=== PATIENT | female | born 1990 | race Caucasian/White ===

== ENCOUNTER 2017-09-23 16:48 | Emergency (ER) | payer SELFPAY ==
[2017-09-23 17:04] VITALS: BP 135/101; PULSE 112; RESP 18; TEMP 97.6; O2SAT 100
--- NOTE | 2017-09-23 17:45 | PD ---
HPI Chief Complaint: Skin Problem Time Seen by Provider: 17:16 Travel History International Travel<30 days: No Contact w/Intl Traveler<30days: No Traveled to known affect area: No History of Present Illness HPI 27 YO right hand dominant F presents to the ED for evaluation of 5 day history of pain and swelling of the right second digit. The patient denies acute injury to the finger. She states that she has "lots of cracks" on the tips of her fingers and that occasionally she gets infections. She denies fevers, chills, nausea, vomiting, numbness, tingling, weakness, limitations to range of motion of the digit. Treated at home with Bactroban ointment with no improvement of symptoms. She endorses history of MRSA. [facility] Past Medical History ?: Unknown LMP: 09/05/2017 Social History Tobacco Use: Yes Allergies-Medications (Allergen,Severity, Reaction): Coded Allergies: No Known Allergies (Unverified , 09/23/17) Reported Meds & Prescriptions Reported Meds & Active Scripts Active Ibuprofen 800 Mg Tab 800 Mg PO Q8H PRN Keflex (Cephalexin) 500 Mg Cap 500 Mg PO Q6H 7 Days Bactrim DS (Sulfamethoxazole-Trimethoprim) 800-160 Mg Tab 1 Tab PO BID Review of Systems Except as stated in HPI: all other systems reviewed are Neg Physical Exam Narrative GENERAL: Well-nourished, well-developed white female in no acute distress. SKIN: Focused skin assessment warm/dry. Tender ecchymosis of the tuft of the index finger of the right hand. HEAD: Normocephalic. EYES: No scleral icterus. No injection or drainage. NECK: Supple, trachea midline. No JVD or lymphadenopathy. CARDIOVASCULAR: Regular rate and rhythm without murmurs, gallops, or rubs. RESPIRATORY: Breath sounds equal bilaterally. No accessory muscle use. GASTROINTESTINAL: Abdomen soft, non-tender, nondistended. MUSCULOSKELETAL: No cyanosis, or edema. FOCUSED RIGHT UPPER EXTREMITY EXAM: 2+ radial pulse. No edema noted. No cellulitic streaking noted. Patient retains full, active ROM of the digit. Cap refill less than 2 seconds with each digit. Sensation intact to light touch distally with each digit. BACK: Nontender without obvious deformity. No CVA tenderness. Data Data Last Documented VS Vital Signs Date Time Temp Pulse Resp B/P (MAP) Pulse Ox O2 Delivery O2 Flow Rate FiO2 09/23/17 17:04 97.6 112 18 135/101 (112) 100 Orders Orders Finger (Ypc5tiv) (09/23/17 17:20) Sulfamet-Trimeth Ds 800-160 Mg (Bactrim (09/23/17 18:15) Cephalexin (Keflex) (09/23/17 18:15) Ibuprofen (Motrin) (09/23/17 18:15) Ed Discharge Order (09/23/17 18:10) MDM Medical Decision Making Medical Screen Exam Complete: Yes Emergency Medical Condition: Yes Differential Diagnosis tuft injury versus felon versus abscess versus other Narrative Course 27 YO right hand dominant F with PMH of MRSA presents to the ED for evaluation of 5 day history of pain and swelling of the right second digit. The patient denies acute injury to the finger. She states that she has "lots of cracks" on the tips of her fingers and that occasionally she gets infections. She denies fevers, chills, nausea, vomiting, numbness, tingling, weakness, limitations to range of motion of the digit. Treated at home with Bactroban ointment with no improvement of symptoms. Patient is afebrile, anxious-appearing on presentation. On exam there is an ecchymosis of the tuft of the index finger of the right hand but the exam is otherwise unremarkable. Nose no acute bony injury per radiology read. Patient is adamant that she did not have an injury. We'll treat for cellulitis. Patient's prescribed Bactrim, Keflex, ibuprofen, first dose is administered in the ED. She is instructed to keep the finger clean, dry, covered, take medication as its prescribed, return for worsening symptoms. She is stable and discharged home. Diagnosis Primary Impression: Infected finger Referrals: Primary Care Physician Additional Instructions: Rest, hydrate. Elevating the finger may help to reduce throbbing pain. Ice applied to the area 10 minutes per session 3 or 4 times a day helped to reduce swelling and pain. 800 mg ibuprofen up to 3 times a day as prescribed for pain and swelling. Begin antibiotics today and take them until every pill is gone. Monitor for signs of infection as discussed. Follow-up with the primary care provider. Return to the ED for worsening symptoms or any urgent or emergent medical condition. Med/Other Pt SpecificInfo: Prescription(s) given Scripts Ibuprofen (Ibuprofen) 800 Mg Tab 800 MG PO Q8H Y for Pain/Inflammation, #15 TAB 0 Refills Prov: Ida Hernandez MD 09/23/17 Cephalexin (Keflex) 500 Mg Cap 500 MG PO Q6H for Infection for 7 Days, #28 CAP 0 Refills Prov: Ida Hernandez MD 09/23/17 Sulfamethoxazole-Trimethoprim (Bactrim DS) 800-160 Mg Tab 1 TAB PO BID for Infection, #14 TAB 0 Refills Prov: Ida Hernandez MD 09/23/17 Disposition: 01 DISCHARGE HOME Condition: Stable Katie Plummer Sep 23, 2017 17:45
--- NOTE | 2017-09-23 17:53 | RADRPT ---
EXAM DATE/TIME: 09/23/2017 17:40 [facility] COMPARISON: No previous studies available for comparison. INDICATIONS : Right hand, second pain and swelling. No prior trauma. MEDICAL HISTORY : None. SURGICAL HISTORY : None. ENCOUNTER: Initial ACUITY: 4 - 6 days PAIN SCORE: 6/10 LOCATION: Right hand. FINDINGS: Examination of the second digit of the right hand demonstrates no evidence of fracture or dislocation . No radiopaque foreign bodies are seen. The soft tissues are intact. CONCLUSION: Negative for fracture or dislocation. Follow up in 7-10 days is suggested if symptoms persist. Gonzalo Koo MD FACR on September 23, 2017 at 17:51 Board Certified Radiologist. This report was verified electronically.
[2017-09-23] MEDS ORDERED: CEPH-460 PO (18:10)
[2017-09-23] MEDS ORDERED: IBUP1TAB7 PO (18:10)
[2017-09-23] MEDS ORDERED: BACT800T5 PO (18:10)
[2017-09-23] MEDS ORDERED: CEPHALEXIN MONOHYDRATE 500 MG CAP PO ONE (18:15)
[2017-09-23] MEDS ORDERED: IBUPROFEN 800 MG TAB PO ONE (18:15)
[2017-09-23] MEDS ORDERED: SULFAMETHOXAZOLE-TRIMETHOPRIM DS 800-160 MG TAB PO ONE (18:15)
== END 2017-09-23 18:33 | disposition home or self-care (01) ==
LOC: NED 16:48 → NEPK 18:33
DX: L08.9 Local infection of the skin and subcutaneous tissue, unspecified (principal); Z86.14 Personal history of Methicillin resistant Staphylococcus aureus infection; Z72.0 Tobacco use
CPT/HCPCS: 73140; 99283